=== PATIENT | male | born 1965 | race Caucasian/White ===

== ENCOUNTER → 2017-12-25 | Outpatient (CLI) | payer BC ==
--- NOTE | 2017-12-25 17:08 | KCIC ---
History: Screening for orbital foreign body. Pre-MRI. History of metal to the eye. Comparison: None. Findings: Single Amador' view of the orbits. No metallic foreign body is seen projecting over either orbit. There may be mild bilateral maxillary sinus disease. Impression: No evidence of orbital metallic foreign body. Orbits are clear for MRI. Electronically signed by: Tres Reno MD (12/25/2017 5:05 PM) [facility]
--- NOTE | 2017-12-25 17:11 | KCIC ---
MR of the left knee Indication: Left knee pain, twisting injury about 10 days ago. Swelling. Anterior pain. Technique: The standard multiplanar sequences are obtained. FINDINGS: Artifact: No significant image degradation. Medial meniscus: Blunting of the free margin of the posterior horn of the medial meniscus, as well as some intrameniscal signal violating the undersurface, compatible with a tear. Lateral meniscus: Mild signal and minimal deformity of the posterior horn. No definite tear. Anterior cruciate ligament: Poorly defined and heterogeneous compatible with a tear. Posterior cruciate ligament: Intact Medial collateral ligament: Intact. Lateral structures: * Iliotibial band: Intact. * Lateral collateral ligament: Intact. * Biceps femoris tendon: Intact * Popliteus tendon attachment: Intact Extensive mechanism: * Patellar tendon: Intact * Quadriceps tendon: Intact * Retinacular structures: Intact Fluid: Moderate joint effusion. No significant Boykin's cyst. Intra-articular bodies: None visualized Joint compartments * patellofemoral joint: Intact * medial compartment: Full-thickness articular cartilage defect at the posterior weightbearing lateral femoral condyle, measures 9 mm x 9 mm, with acute subjacent bone marrow edema. More chronic appearing chondral thinning at the posterior lateral tibial plateau. A loose displaced articular cartilage fragment is suspected but not confidently visualized. * lateral compartment:Intact Bones: No significant lesion or acute fracture. Soft tissue: Mild subcutaneous edema. Impression: 1. Medial meniscal tear. 2. Lateral meniscal degeneration without definitive tear. 3. Poorly seen anterior cruciate ligament, tear is suspected. 4. Full-thickness articular cartilage defect/tear at the posterior weightbearing lateral femoral condyle, could be due to acute trauma with displaced fragment. Electronically signed by: Tres Rubin MD (12/25/2017 5:08 PM) [id number]
== END | disposition home or self-care (01) ==
LOC: KCIC MRI 15:47
PROVIDERS: ATTEND Neuromusculoskeletal Medicine & OMM
DX: Z01.00 Encounter for examination of eyes and vision without abnormal findings (principal); S83.242A Other tear of medial meniscus, current injury, left knee, initial encounter; M25.462 Effusion, left knee; R60.0 Localized edema; Z87.821 Personal history of retained foreign body fully removed; X58.XXXA Exposure to other specified factors, initial encounter; Y93.89 Activity, other specified; Y92.89 Other specified places as the place of occurrence of the external cause; Y99.8 Other external cause status
CPT/HCPCS: 70030; 73721